=== PATIENT | male | born 1950 | race Caucasian/White ===

== ENCOUNTER → 2016-12-27 | Outpatient (CLI) | payer BC ==
[~2016-12-27] MED LIST: DIPH-437 PO; ESOM20CA PO; OMEP20TA14 PO; OXYC-57 PO; TRAM-10 PO; WARF-284 PO; WARF5TAB7 PO
== END | disposition home or self-care (01) ==
LOC: C.CPL 08:18
PROVIDERS: ATTEND Orthopaedic Surgery
DX: Z01.810 Encounter for preprocedural cardiovascular examination (principal)

== ENCOUNTER 2017-01-09 10:35 | Emergency (ER) | payer BC ==
[~2017-01-09] VITALS: Ht 182.9 cm; Wt 120.3 kg
[~2017-01-09 10:35] MED LIST changes: -DIPH-437 PO; -ESOM20CA PO; -OXYC-57 PO; -TRAM-10 PO
[2017-01-09 10:43] VITALS: TEMP 36.7; Ht 182.9 cm; Wt 120.3 kg
--- NOTE | 2017-01-09 11:09 | EMERGENCY ROOM VISIT NOTE ---
History Report prepared by Halina: Radha Brar Under the Supervision of: Dr. Kathy Maria M.D. First contact with patient: 10:47 Chief Complaint: SHORTNESS OF BREATH Stated Complaint: SOB,SWEATING History of Present Illness The patient is a 66 year old male who presents to the Emergency Room with complaints of resolved shortness of breath that started around 0930. The patient states that he had surgery on his left rotator cuff 4 days ago. He was prescribed Percocet for the pain. He has taken multiple pills since the surgery because the pain was pretty severe the first few days after the procedure. However, about 30 minutes after he took his Percocet pill this morning he began to "feel weird" and his "head did not feel normal." He developed the shortness of breath at this time, along with diaphoresis. The symptoms lasted for about one hour. He never experienced this type of reaction when he took Percocet over the last few days. 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 He states that the droop is worse when he is tired or stressed. 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 The patient denies any history of cardiac problems and states that he received medical clearance prior to surgery. Source of History: patient, spouse/significant other () Onset: 0930 Position: chest Quality: other (shortness of breath) Timing: resolved Associated Symptoms: + diaphoresis Note: "head did not feel normal" Review of Systems See HPI for pertinent positives & negatives. A total of 10 systems reviewed and were otherwise negative. Past Medical & Surgical Medical Problems: (1) GERD (gastroesophageal reflux disease) (2) Hiatal hernia Surgical Problems: (1) History of acoustic neuroma Family History Cancer Diabetes mellitus Social History Smoking Status: Former Smoker Alcohol Use: occasionally Marital Status: Housing Status: lives with family Occupation Status: employed Current/Historical Medications Scheduled Esomeprazole Magnesium (Nexium), 20 MG PO DAILY Warfarin Sod (Jantoven), 5 MG PO 6XWK Warfarin Sodium (Warfarin Sodium), 7.5 MG PO WK Scheduled PRN Acetaminophen/Diphenhydramine (Tylenol Pm), 1 TAB PO UD PRN for Sleep Oxycodone/Acetaminophen 5MG/325MG (Percocet 5MG/325MG), 1-2 TABLETS PO Q6 PRN for Pain Tramadol (Ultram), 1-2 TAB PO TID PRN for Pain Allergies Coded Allergies: BEE STING (Verified Allergy, Severe, ARMS SWELLS, 11/07/14) Physical Exam Vital Signs Date Time Temp Pulse Resp B/P Pulse Ox O2 Delivery O2 Flow Rate FiO2 01/09/17 13:41 64 18 145/90 96 Room Air 01/09/17 11:48 57 16 150/87 91 Room Air 01/09/17 11:38 54 01/09/17 11:37 56 18 169/114 93 Room Air 01/09/17 11:35 93 Room Air 01/09/17 10:43 36.7 58 18 155/90 94 Room Air Physical Exam CONSTITUTIONAL: The patient is in no acute distress. HEENT: No icterus, moist mucous membranes NECK: No meningismus, trachea is midline. CARDIOVASCULAR: Regular rate, normal perfusion RESPIRATORY: Unlabored breathing. Clear to auscultation. GASTROINTESTINAL: Non-tender GENITOURINARY: No flank tenderness MUSCULOSKELETAL: Full range of motion NEUROLOGIC: No acute gross focal deficits. Barely perceivable neuromuscular abnormality of the lateral left lip consistent with baseline after neurosurgical intervention. PSYCHIATRIC: Normal affect SKIN: Normal for ethnicity. Medical Decision & Procedures ER Provider Diagnostic Interpretation: X-ray results as stated below per interpretation by me and the radiologist. CHEST ONE VIEW PORTABLE IMPRESSION: No acute cardiopulmonary findings. No significant change in appearance of the chest. Electronically signed by: Bob Jonas M.D. 01/09/2017 11:21 AM Dictated Date/Time: 01/09/2017 11:19 AM Laboratory Results 01/09/17 11:25 Red Blood Count 4.50, Mean Corpuscular Volume 90.0, Mean Corpuscular Hemoglobin 31.6, Mean Corpuscular Hemoglobin Concent 35.1, Mean Platelet Volume 10.7, Neutrophils (%) (Auto) 59.0, Lymphocytes (%) (Auto) 27.3, Monocytes (%) (Auto) 10.2, Eosinophils (%) (Auto) 2.5, Basophils (%) (Auto) 0.3, Neutrophils # (Auto ) 3.52, Lymphocytes # (Auto) 1.63, Monocytes # (Auto) 0.61, Eosinophils # (Auto ) 0.15, Basophils # (Auto) 0.02 01/09/17 11:25 Test 01/09/17 11:15 01/09/17 11:25 Urine Color YELLOW Urine Appearance CLEAR (CLEAR) Urine pH 7.0 (4.5-7.5) Urine Specific Sulphur 1.010 (1.000-1.030) Urine Protein NEG (NEG) Urine Glucose (UA) NEG (NEG) Urine Ketones NEG (NEG) Urine Occult Blood NEG (NEG) Urine Nitrite NEG (NEG) Urine Bilirubin NEG (NEG) Urine Urobilinogen NEG (NEG) Urine Leukocyte Esterase NEG (NEG) White Blood Count 5.97 K/uL (4.8-10.8) Red Blood Count 4.50 M/uL (4.7-6.1) Hemoglobin 14.2 g/dL (14.0-18.0) Hematocrit 40.5 % (42-52) Mean Corpuscular Volume 90.0 fL (80-100) Mean Corpuscular Hemoglobin 31.6 pg (25-34) Mean Corpuscular Hemoglobin Concent 35.1 g/dl (32-36) Platelet Count 201 K/uL (130-400) Mean Platelet Volume 10.7 fL (7.4-10.4) Neutrophils (%) (Auto) 59.0 % Lymphocytes (%) (Auto) 27.3 % Monocytes (%) (Auto) 10.2 % Eosinophils (%) (Auto) 2.5 % Basophils (%) (Auto) 0.3 % Neutrophils # (Auto) 3.52 K/uL (1.4-6.5) Lymphocytes # (Auto) 1.63 K/uL (1.2-3.4) Monocytes # (Auto) 0.61 K/uL (0.11-0.59) Eosinophils # (Auto) 0.15 K/uL (0-0.5) Basophils # (Auto) 0.02 K/uL (0-0.2) RDW Standard Deviation 41.3 fL (36.4-46.3) RDW Coefficient of Variation 12.6 % (11.5-14.5) Immature Granulocyte % (Auto) 0.7 % Immature Granulocyte # (Auto) 0.04 K/uL (0.00-0.02) Prothrombin Time 13.6 SECONDS (9.0-12.0) Prothromb Time International Ratio 1.3 (0.9-1.1) Anion Gap 10.0 mmol/L (3-11) Est Creatinine Clear Calc Drug Dose 86.1 ml/min Estimated GFR () 79.5 Estimated GFR (Non- 68.6 BUN/Creatinine Ratio 17.3 (10-20) Calcium Level 9.4 mg/dl (8.5-10.1) Troponin I < 0.015 ng/ml (0-0.045) Labs reviewed by ED physician. ECG Indication: SOB/dyspnea Rate (beats per minute): 60 Rhythm: sinus rhythm Findings: no ectopy, other (no ST segment abnormalities, normal axis) ED Course 1051: Past medical records reviewed. The patient was evaluated in room C3. A complete history and physical examination was performed. 1338: Upon reexamination the patient is comfortable and asymptomatic. I discussed results and treatment plan with the patient. He verbalizes agreement and understanding. The patient is ready for discharge. Medical Decision Differential diagnoses include but are not limited to; medication side effects, heart disease, post operative complications. 66-year-old postop day number for rotator cuff repair presents to emergency room for feeling ill after taking Percocet. She notes that each time he takes Percocet he feels unwell and prefers not to take it and requests consultation for alternative pain management. Review of systems is negative, especially for cardiac and respiratory complaints. Is precautionary measure EKG and labs were obtained and patient monitored emergency room for 2 hours. He appeared well throughout his course and was confidences desired to leave. Prescription for tramadol written. Patient has verbal understanding he may take 1-2 pills every 8 hours as needed. Impression Primary Impression: Post-operative pain Scribe Attestation The scribe's documentation has been prepared under my direction and personally reviewed by me in its entirety. I confirm that the note above accurately reflects all work, treatment, procedures, and medical decision making performed by me. Departure Information Dispostion Home / Self-Care Prescriptions Tramadol (Ultram) 50 Mg Tab 1-2 TAB PO TID Y for Pain for 30 Days, #20 TAB Prov: Kathy Maria MD 01/09/17 Referrals Shawn Drake M.D. (PCP) Forms HOME CARE DOCUMENTATION FORM, IMPORTANT VISIT INFORMATION Patient Instructions My [facility]
[2017-01-09] MEDS ORDERED: OXYC-57 PO (11:14)
[2017-01-09] MEDS ORDERED: ESOM20CA PO (11:14)
[2017-01-09] MEDS ORDERED: DIPH-437 PO (11:17)
--- NOTE | 2017-01-09 11:22 | DIAGNOSTIC IMAGING REPORT ---
CHEST ONE VIEW PORTABLE CLINICAL HISTORY: Weakness. Shortness of breath. COMPARISON STUDY: Chest CT September 13, 2014. FINDINGS: Lung volumes are normal. There is no consolidation to suggest pneumonia. There are old right rib fractures. Minimal left basilar opacity is suggestive of atelectasis. There is no evidence of pulmonary edema. Mild cardiomegaly is unchanged. IMPRESSION: No acute cardiopulmonary findings. No significant change in appearance of the chest. Electronically signed by: Bob Jonas M.D. 01/09/2017 11:21 AM Dictated Date/Time: 01/09/2017 11:19 AM
[2017-01-09 11:46] LABS: MANUAL MICROSCOPIC REQUIRED? NO; URINE APPEARANCE CLEAR (CLEAR); URINE BILIRUBIN NEG (NEG); URINE COLOR YELLOW; URINE NITRITE NEG (NEG); UROBILINOGEN NEG (NEG)
[2017-01-09 11:52] LABS: REVIEW REQ? NO
[2017-01-09 12:05] LABS: BASO % 0.3 %; BASO ABS # 0.02 K/uL (0-0.2); COMPLETE YES; EOS % 2.5 %; HEMATOCRIT 40.5 % (42-52); IG% 0.7 %; LYMPH % 27.3 %; LYMPH ABS # 1.63 K/uL (1.2-3.4); MEAN CORPUSCULAR HEMOGLOBIN 31.6 pg (25-34); MEAN CORPUSCULAR HGB CONC 35.1 g/dl (32-36); MEAN PLATELET VOLUME 10.7 fL (7.4-10.4); MONO % 10.2 %; PLATELET COUNT 201 K/uL (130-400); WHITE BLOOD COUNT 5.97 K/uL (4.8-10.8)
[2017-01-09 12:08] LABS: INR 1.3 (0.9-1.1); PROTHROMBIN TIME (PATIENT) 13.6 SECONDS (9.0-12.0)
[2017-01-09 12:15] LABS: ZZUR CULT IF INDIC CLEAN CATCH NO
[2017-01-09 12:23] LABS: CREATININE 1.1 mg/dl (0.60-1.40)
[2017-01-09 12:24] LABS: BUN/CREATININE RATIO 17.3 (10-20); CALCIUM 9.4 mg/dl (8.5-10.1)
[2017-01-09 13:41] VITALS: BP 145/90; PULSE 64; O2SAT 96
[2017-01-09] MEDS ORDERED: TRAM-10 PO (13:42)
== END 2017-01-09 14:03 | disposition home or self-care (01) ==
LOC: C.EDB 10:36 → C.EDC 14:03
DX: G89.18 Other acute postprocedural pain (principal); K21.9 Gastro-esophageal reflux disease without esophagitis; Z87.891 Personal history of nicotine dependence

== ENCOUNTER → 2017-01-10 | Outpatient (CLI) | payer BC ==
[~2017-01-10] MED LIST changes: +DIPH-437 PO; +ESOM20CA PO; -OMEP20TA14 PO; +OPTIRAY 320 IV PRN; +OXYC-57 PO; +TRAM-10 PO
--- NOTE | 2017-01-10 14:37 | DIAGNOSTIC IMAGING REPORT ---
CT ANGIOGRAPHY OF THE CHEST, PULMONARY EMBOLUS PROTOCOL CLINICAL HISTORY: Chest pain and shortness of breath. Factor V Leiden. COMPARISON STUDY: Chest CT September 13, 2014 and chest radiograph January 09, 2017 TECHNIQUE: Following IV administration of 91 mL of Optiray-320, helical axial images of the chest were obtained utilizing the pulmonary embolus protocol. Maximal intensity projections and sagittal and coronal reformats were viewed on an independent 3D workstation. IV contrast was administered without complication. CT DOSE: 827.52 mGy.cm FINDINGS: No pulmonary emboli are identified although the segmental and subsegmental pulmonary arteries within the lower lobes are suboptimally assessed due to respiratory motion. The heart is moderately enlarged. There is no pericardial effusion. No enlarged thoracic lymph nodes are present. A small hiatal hernia is present. There is no consolidation to suggest pneumonia. There are old right-sided rib fractures. Linear opacities within the lungs suggest atelectasis. There are mild groundglass opacities within the lungs with mild mosaic attenuation. No pneumothorax or pleural effusion is present. Visualized portions of the upper abdomen are unremarkable. IMPRESSION: 1. No pulmonary emboli identified although the segmental and subsegmental pulmonary arteries are suboptimally assessed due to respiratory motion. 2. No consolidation to suggest pneumonia. 3. Mild scattered groundglass opacities and mosaic attenuation within lungs. The findings are nonspecific but could reflect air trapping. Electronically signed by: Bob Jonas M.D. 01/10/2017 2:35 PM Dictated Date/Time: 01/10/2017 2:27 PM
== END | disposition home or self-care (01) ==
LOC: C.CTS 14:03
PROVIDERS: ATTEND Internal Medicine Pulmonary Disease
DX: R07.9 Chest pain, unspecified (principal); D68.51 Activated protein C resistance; R06.02 Shortness of breath

== ENCOUNTER 2017-10-08 16:06 | Emergency (ER) | payer BC ==
[~2017-10-08] VITALS: Ht 180.3 cm; Wt 119.6 kg
[~2017-10-08 16:06] MED LIST changes: -DIPH-437 PO; -OPTIRAY 320 IV PRN; -OXYC-57 PO; -TRAM-10 PO
[2017-10-08 16:08] VITALS: Ht 180.3 cm; Wt 119.6 kg
[2017-10-08] MEDS ORDERED: DOXY-300 PO (16:26)
--- NOTE | 2017-10-08 16:27 | EMERGENCY ROOM VISIT NOTE ---
History First contact with patient: 16:10 Chief Complaint: BITE Stated Complaint: TICK BITE History of Present Illness The patient is a 67 year old male who presents to the Emergency Room with complaints of "tick bite". The patient states that he was out hunting in the [facility] , and noticed a tick on the right side of the abdomen. He states that the rash has now developed, and it is enlarging. He states that he is concerned because some of the tick is still in there. He denies any fevers, chills, chest pain, shortness of breath. He notes he only complaint is the rash on the right side of his abdomen for the tick bite was. His tetanus is up- to-date. He is on Coumadin. Review of Systems A complete 6-point Review of Systems was discussed with the patient, with pertinent positives and negatives listed in the History of Present Illness. All remaining Review of Systems questions can be considered negative unless otherwise specified. Past Medical/Surgical History Medical Problems: (1) GERD (gastroesophageal reflux disease) (2) Hiatal hernia Surgical Problems: (1) History of acoustic neuroma Family History Cancer Diabetes mellitus Social History Smoking Status: Former Smoker Alcohol Use: occasionally Marital Status: Housing Status: lives with family Occupation Status: employed Current/Historical Medications Scheduled Doxycycline (Monohydrate) (Doxycycline), 100 MG PO BID Esomeprazole Magnesium (Nexium), 20 MG PO DAILY Warfarin Sod (Jantoven), 5 MG PO 5XWK Warfarin Sodium (Warfarin Sodium), 7.5 MG PO 2XWK Physical Exam Vital Signs Date Time Temp Pulse Resp B/P (MAP) Pulse Ox O2 Delivery O2 Flow Rate FiO2 10/08/17 16:50 36.8 68 18 181/103 96 10/08/17 16:08 36.8 68 18 181/103 96 Room Air Physical Exam VITAL SIGNS - Vital signs and nursing notes were reviewed. Stable. Hypertensive. GENERAL -67-year-old male appearing his stated age who is in no acute distress. Communicates well with provider and answers questions appropriately. SKIN -there is an erythematous bulls eye like rash on the patient's right side of the abdomen. This is approximately 20 cm in width by 10 cm in height surrounding a central 1 cm erythematous central region. There is a small darkened center consistent with a tick. Medical Decision & Procedures Laboratory Results Test 10/08/17 16:35 Bedside Prothrombin Time INR 2.9 (0.9-1.1) Medical Decision Patient was seen and evaluated as above. Medication list reviewed. He is hypertensive which I believe to be secondary to situation. He has a tick bite on the right side of the abdomen with an erythematous rash consistent with that of erythema migrans. I will treat with a 21 day course of doxycycline. Patient 's INR was checked here and found to be 2.9 this is because the doxycycline considered testicular work with the Coumadin. He is to have this rechecked on Tuesday. He is also to have Lyme disease testing performed by his family doctor in the upcoming weeks. He was educated upon management, educated upon worrisome symptoms which to return, had questions answered prior to discharge, and was discharged home in good condition. He was also seen and evaluated by the attending physician, Dr. Dumont. The region was also swabbed with alcohol prep pad, and a sterile 18-gauge needle was utilized to remove the remaining tick. There was no bleeding. This was then cleansed with alcohol prep pad. Bacitracin Band-Aid was applied. In evaluation and treatment of this patient the following differential diagnoses were entertained: Erythema migrans, contact dermatitis, among others. Impression Primary Impression: Tick bite Additional Impression: Erythema migrans (Lyme disease) Departure Information Dispostion Home / Self-Care Condition GOOD Prescriptions Doxycycline (Monohydrate) (Doxycycline) 100 Mg Cap 100 MG PO BID for 21 Days, #42 TABS Prov: Alonso Diaz PA-C 10/08/17 Referrals Shawn Drake M.D. (PCP) Patient Instructions Disease Lyme Prevent, ED Lyme Disease, [facility] Additional Instructions You were seen in the emergency Department for a tick bite. At this time you have the rash called erythema migrans which is associated with Lyme disease. We will initiate a 21 day course of antibiotics. You have been prescribed Doxycycline to be taken as prescribed. This is an antibiotic. All antibiotics have the potential to cause diarrhea. Stop this medication and contact a medical provider if you were to develop any significant adverse side effects including: wheezing, shortness of breath, passing out, vomiting, or a diffuse rash. Always take antibiotics as directed and COMPLETE the ENTIRE course regardless of the improvement of your symptoms. Protect yourself with sunscreen while on this antibiotic as it increases your skin's sensitivity to the light and cause bad sunburns. In addition, you should be sure to take this pill after eating. Make sure the pill is completely swallowed as this medication can cause irritation to the lining of the esophagus. Do NOT drink milk or eat anything with large amounts of Calcium in them 1 hour prior to taking this medication as this will decrease the effectiveness of the medication. I recommend LYME disease testing in a few weeks by the family doctor. This can increase the effect of your Coumadin by thinning your blood more. I recommend monitoring your INR closely. Your INR today (10/08/17) was 2.9 Please follow with your family doctor by calling their office Tuesday. Please return with any new/concerning symptoms. Problem Qualifiers
--- NOTE | 2017-10-08 16:34 | EMERGENCY ROOM VISIT NOTE ---
ED Visit Note First contact with patient: 16:29 This Patient was discussed with the physician Study Specialist, Alonso Diaz PA-C. The pertinent historical and physical exam findings were confirmed. I agree with the studies ordered and with the interpretations of these studies. I agree with the disposition and care plan.
[2017-10-08 16:50] VITALS: BP 181/103; PULSE 68; TEMP 36.8; O2SAT 96
== END 2017-10-08 16:52 | disposition home or self-care (01) ==
LOC: C.EDB 16:07 → C.EDD 16:52
DX: S30.861A Insect bite (nonvenomous) of abdominal wall, initial encounter (principal); A69.20 Lyme disease, unspecified; K21.9 Gastro-esophageal reflux disease without esophagitis; Z79.01 Long term (current) use of anticoagulants; Z87.19 Personal history of other diseases of the digestive system; Z87.891 Personal history of nicotine dependence; Z83.3 Family history of diabetes mellitus; W57.XXXA Bitten or stung by nonvenomous insect and other nonvenomous arthropods, initial encounter

== ENCOUNTER → 2017-11-10 | Outpatient (CLI) | payer BC ==
[2017-11-10 11:56] LABS: LYME DISEASE AB IGG NEG (NEG); LYME DISEASE AB IGM NEG (NEG)
== END | disposition home or self-care (01) ==
LOC: C.LAB1850 09:43
PROVIDERS: ATTEND Physician Assistant Medical
DX: A69.20 Lyme disease, unspecified (principal)

== ENCOUNTER → 2018-02-14 | Outpatient (CLI) | payer BC ==
[2018-02-14 12:18] LABS: BASO % 0.6 %; BASO ABS # 0.04 K/uL (0-0.2); EOS % 3.4 %; EOS ABS # 0.21 K/uL (0-0.5); HEMATOCRIT 43.1 % (42-52); HEMOGLOBIN 14.7 g/dL (14.0-18.0); IG# 0.04 K/uL (0.00-0.02); LYMPH % 35.2 %; LYMPH ABS # 2.17 K/uL (1.2-3.4); MEAN CELL VOLUME 91.3 fL (80-100); MEAN CORPUSCULAR HEMOGLOBIN 31.1 pg (25-34); MEAN CORPUSCULAR HGB CONC 34.1 g/dl (32-36); MONO % 9.7 %; NEUT % 50.5 %; NEUT ABS # 3.11 K/uL (1.4-6.5); PLATELET COUNT 186 K/uL (130-400); RED CELL DISTRIBUTION WIDTH CV 13.4 % (11.5-14.5); RED CELL DISTRIBUTION WIDTH SD 44.7 fL (36.4-46.3); WHITE BLOOD COUNT 6.17 K/uL (4.8-10.8)
[2018-02-14 12:48] LABS: ALBUMIN 3.8 gm/dl (3.4-5.0); ALT/SGPT 34 U/L (12-78); BLOOD UREA NITROGEN 19 mg/dl (7-18); CALCIUM 9.4 mg/dl (8.5-10.1); CARBON DIOXIDE 30 mmol/L (21-32); CHOLESTEROL 264 mg/dl (0-200); GLUCOSE 89 mg/dl (70-99); POTASSIUM 4.3 mmol/L (3.5-5.1); SODIUM 136 mmol/L (136-145)
[2018-02-14 12:58] LABS: ALKALINE PHOSPHATASE 59 U/L (45-117); AST/SGOT 19 U/L (15-37); LDL CHOLESTEROL CALCULATED 166 mg/dl; TOTAL PROTEIN 7.5 gm/dl (6.4-8.2)
== END | disposition home or self-care (01) ==
LOC: C.LAB1850 09:42
PROVIDERS: ATTEND Internal Medicine Pulmonary Disease
DX: I82.409 Acute embolism and thrombosis of unspecified deep veins of unspecified lower extremity (principal); Z12.5 Encounter for screening for malignant neoplasm of prostate